=== PATIENT | female | born 1945 ===

== ENCOUNTER 2018-04-08 08:11 | Emergency (ER) | payer OTHER ==
[~2018-04-08] VITALS: Ht 152.4 cm; Wt 78.9 kg
[~2018-04-08 08:11] MED LIST: COZAAR100 MG PO; Coreg PO; FUROSEMIDE10 MG/M1 IV; LIPITOR20 MG PO; Synthroid 150MCG TABLET PO
== END 2018-04-08 14:24 | disposition home or self-care (01) ==
LOC: ER 08:11
DX: J06.9 Acute upper respiratory infection, unspecified (principal); D64.89 Other specified anemias; K52.89 Other specified noninfective gastroenteritis and colitis